=== PATIENT | female | born 1985 | race Caucasian/White ===

== ENCOUNTER 2019-10-14 14:56 | Observation (INO) ==
[2019-10-14] MEDS ORDERED: ONDANSETRON 4 MG/2 ML VIAL IV STA (15:36)
[2019-10-14] MEDS ORDERED: KETOROLAC 30 MG/1 ML VIAL IV STA (15:36)
[2019-10-14] MEDS ORDERED: SODIUM CHLORIDE 0.9% 1,000 ML IV STA (15:36)
[2019-10-14 16:24] LABS: Basophils # 0.1 10*3/uL (0.0-0.2); Basophils % 0.4 % (0.0-0.8); Hematocrit 39.7 VOL% (35.7-47.0); Hemoglobin 13.2 GM/DL (12.0-16.0); Immature Granulocytes % 0.7 %; Immature Granulocytes Absolute 0.18 #; Lymphocytes # 1.8 10*3/uL (1.4-4.0); Lymphocytes % 6.8 % (21.3-54.2); Mean Corpuscular HGB Conc 33.2 GM/DL (32-36); Mean Corpuscular Volume 94.1 FL (87-102); Mean Platelet Volume 12.3 FL (9.6-12.0); Monocytes % 8.4 % (1.7-12.7); Neutrophils % 83.7 % (38.7-73.9); Platelet Count 284 T/CUMM (130-400); Red Blood Count 4.22 MC/CUMM (3.8-5.5); Red Cell Distribution Width 16.8 % (9.3-17.3); White Blood Count 25.8 T/CUMM (4-12)
[2019-10-14 16:42] LABS: Apearance,Urine CLOUDY (Clear); Bacteria,Urine Many /HPF (Few); Bilirubin,Urine Negative (Negative); Blood, Urine Moderate mg/dL (Negative); Glucose,Urine (UA) Negative (Negative); Ketones,Urine 80 mg/dL (Negative); Mucus,Urine Many /LPF (Occasional); Nitrite,Urine Negative (Negative); Protein,Urine 100 MG/DL; RBC,Urine 21 /HPF (0-4); Squamous Epithelial Cell,Urine Many /HPF (0-10); Urine Specific Gravity 1.019 (1.001-1.035); Urine Urobilinogen < 2.0 EU/DL (0.2-1.0); WBC,Urine 284 /HPF (0-6)
[2019-10-14 16:52] LABS: Urine Color Yellow (Yellow)
[2019-10-14] MEDS ORDERED: LEVOFLOXACIN INJ 750 MG in PREMIX 1 EACH IV STA (17:30)
[2019-10-14 17:43] LABS: Lymphocytes 9 % (20-55); Macrocytosis Slight; Segmented Neutrophils 80 % (50-85); Total Cells Counted 100
[2019-10-14 17:44] LABS: Hypersegmented Neutrophil Few; Hypochromasia 1+; Platelet Estimate Normal
[2019-10-14 17:45] LABS: Anisocytosis Slight
[2019-10-14] MEDS ORDERED: ONDANSETRON 4 MG/2 ML VIAL IV PRN (18:14)
[2019-10-14] MEDS ORDERED: MORPHINE 4 MG/1 ML VIAL IV PRN (18:14)
[2019-10-14] MEDS ORDERED: LACTULOSE 20 GM/30 ML UDCUP PO PRN (18:14)
[2019-10-14] MEDS ORDERED: DOCUSATE SODIUM 100 MG CAPSULE PO PRN (18:14)
[2019-10-14] MEDS ORDERED: GLUCAGON 1 MG VIAL IM PRN (18:14)
[2019-10-14] MEDS ORDERED: DEXTROSE 10% 250 ML BAG IV PRN (18:14)
[2019-10-14 19:10] LABS: Albumin 2.7 G/DL (3.4-5.0); Bilirubin,Total 0.5 MG/DL (0.2-1.0); Calcium 7.9 MG/DL (8.5-10.1); Osmolality,Calculated 262.5 MOS/KG (273-304); Total Protein 6.7 G/DL (6.4-8.3)
[2019-10-14 19:13] LABS: Ferritin 98.7 ng/ml (8-252)
[2019-10-14] MEDS ORDERED: ENOXAPARIN 40 MG/0.4 ML SYRINGE SUBCUT SCH (21:00)
[2019-10-14] MEDS: SODIUM CHLORIDE 0.9% 1,000 ML IV SCH (21:25)
[2019-10-15] MEDS ORDERED: KETOROLAC 30 MG/1 ML VIAL IV PRN (04:28)
[2019-10-15] MEDS: ACETAMINOPHEN 325 MG TABLET PO PRN ×2 (05:12→09:15)
[2019-10-15] MEDS: SODIUM CHLORIDE 0.9% 1,000 ML IV SCH (05:13)
[2019-10-15 06:48] LABS: Basophils % 0.3 % (0.0-0.8); Eosinophils # 0.1 10*3/uL (0.0-0.87); Eosinophils % 0.6 % (0.00-10.9); Hematocrit 33.5 VOL% (35.7-47.0); Immature Granulocytes % 0.5 %; Immature Granulocytes Absolute 0.08 #; Lymphocytes # 1.5 10*3/uL (1.4-4.0); Lymphocytes % 9.6 % (21.3-54.2); Mean Corpuscular HGB Conc 31.9 GM/DL (32-36); Mean Corpuscular Volume 97.4 FL (87-102); Mean Platelet Volume 9.9 FL (9.6-12.0); Monocytes % 12.3 % (1.7-12.7); Neutrophils % 76.7 % (38.7-73.9); Platelet Count 253 T/CUMM (130-400); Red Blood Count 3.44 MC/CUMM (3.8-5.5); Red Cell Distribution Width 16.3 % (9.3-17.3)
[2019-10-15 06:49] LABS: Hemoglobin 10.7 GM/DL (12.0-16.0)
[2019-10-15 08:21] LABS: Albumin 2.4 G/DL (3.4-5.0); Bilirubin,Total 0.6 MG/DL (0.2-1.0); Calcium 7.8 MG/DL (8.5-10.1); Osmolality,Calculated 269.1 MOS/KG (273-304); Total Protein 6.4 G/DL (6.4-8.3)
[2019-10-15] MEDS ORDERED: LEVOFLOXACIN INJ 750 MG in PREMIX 1 EACH IV SCH (09:00)
[2019-10-15] MEDS ORDERED: PANTOPRAZOLE 40 MG TABLET PO SCH (09:00)
[2019-10-15 10:04] VITALS: BP 98/54
== END 2019-10-15 11:13 | disposition home or self-care (01) ==
LOC: N.ED 14:56 → N.EDINP 18:14 → INTOOBSV 18:14 → N.2E 19:00
PROVIDERS: ADMIT Internal Medicine; ATTEND Internal Medicine